=== PATIENT | male | born 1995 | race Caucasian/White ===

== ENCOUNTER 2025-08-29 09:34 | Outpatient (CLI) | payer OTHER, SELFPAY ==
--- OUTSIDE RECORDS SUMMARY | 2025-08-29 11:06 | XMS_ITS | Clinical Summary ---
Author Organization [facility] Address [address] [place] [address] Phone Care Team Providers Care [employer] Operator Name Role Phone Provider, Unknown Primary Care Provider Unavaila ble Allergies No known active allergies Medications No known medications Active Problems No known active problems Immunizations Immunization Administration Dates Next Due DTAP VACCINE 01/26/1995,01/28/1994 DTP-Hib 04/23/1995, 4,03/24/1994,02/03 Hepatitis A Vaccine, Pediatric/adolescent, 2 Dose Schedule 05/08/2009,05/15/2008 Hepatitis B Vaccine, Pediatric/adolescent 11/26/1996,08/12/1994,1993,09/16 Hib (PRP-OMP) Vaccine 04/23/1995,02/03/1994 MMR Vaccine 02/27/1998,01/26/1995 Meningococcal Vaccine 06/14/2012,05/15/2008 OPV 02/27/1998, 4,03/24/1994,02/03 TDAP Vaccine 01/25/2008 Social History Tobacco Use Types Packs/Day Years Used Date Smoking Tobacco: Never Assessed Sex and Gender Information Value Date Recorded Sex Assigned at Not on file 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 Gender Identity Not on file Sexual Orientation Not on file Last Filed Vital Signs Vital Sign Reading Time Taken Comments Blood Pressure 116/52 12/03/2024 11:56 AM STRETCH PRESS OPERATOR Pulse 96 12/03/2024 11:56 AM STRETCH PRESS OPERATOR Temperature 36.3 C (97.4 F) 12/03/2024 11:56 AM STRETCH PRESS OPERATOR Respiratory Rate 18 12/03/2024 11:56 AM STRETCH PRESS OPERATOR Oxygen Saturation 98% 12/03/2024 11:56 AM STRETCH PRESS OPERATOR Inhaled Oxygen Concentration - - Weight - - Height - - Body Mass Index - - Plan of Treatment Health Maintenance Due Date Last Done Comments Hepatitis C Virus (HCV) Screening 1993 DTaP/Tdap/Td Immunization (6 - Td or Tdap) 01/24/2018 01/25/2008, 04/23/1995, 01/26/1995, Additional history exists Human Papillomavirus (HPV) Immunization (1 - 3-dose SCDM series) 2020 Influenza Immunization (#1) 2025 SARS-COV-2 Immunization (2024- season) 2025 Respiratory Syncytial Virus (RSV) Immunization (Adult) (1 - 1-dose 75+ series) 2068 Hepatitis B Immunization Completed 997, 08/12/1994, 1993, Additional history exists Meningococcal Immunization (ACWY) Completed 06/14/2012, 05/15/2008 Pneumococcal Immunization Combined Aged Out No longer eligible based on patient's age to complete this topic Rotavirus Immunization Aged Out No lo nger eligible based on patient's age to complete this topic Insurance Care Teams [employer] Operator Relationship Specialty Start Date End Date Provider, Unknown UNKNOWN PCP - General 12/03/24
[2025-08-29 19:21] LABS: Hematocrit 46.1 % (42.0-52.0); Hemoglobin 15.3 g/dL (14.0-18.0); Mean Corpuscular HGB Conc 33.2 g/dl (32-36); Mean Corpuscular Hemoglobin 31.2 pg (26-34); Mean Corpuscular Volume 93.9 fl (80-100); Platelet Count Result 237 k/mm3 (150-375); Red Blood Count 4.91 M/mm3 (4.6-6.20); White Blood Count 7.1 K/mm3 (4.5-10.0)
[2025-08-29 19:31] LABS: Alanine Aminotransferase 22 U/L (6-50); Albumin Level 4.8 g/dL (3.5-5.1); Alkaline Phosphatase 57 U/L (38-126); Anion Gap 9 mmol/L (4-12); Aspartate Amino Transferase 58 U/L (17-59); Bilirubin,Total 0.9 mg/dL (0.2-1.3); Blood Urea Nitrogen 20 mg/dL (9-20); Calcium 9.5 mg/dL (8.4-10.2); Carbon Dioxide 23 mmol/L (22-30); Chloride 104 mmol/L (98-107); Cholesterol 181 mg/dL (0-200); Estimated Glomerular Filt Rate > 60; Glucose 94 mg/dL (65-110); HDL Direct 51 mg/dL; Magnesium 2.0 mg/dL (1.6-2.3); Potassium 4.1 mmol/L (3.4-5.0); Sodium 136 mmol/L (137-145); Total Protein 8.1 g/dL (6.3-8.2); Triglycerides 64 mg/dL (<150)
[2025-08-29 20:09] LABS: Thyroid Stimulating Hormone 1.510 uIU/mL (0.465-4.680)
[2025-08-29 20:28] LABS: Vitamin B12 493.0 pg/mL (239-931)
[2025-08-31 16:08] LABS: Deamidated Gliadin Abs, IgA <1 units (0-19); Deamidated Gliadin Abs, IgG 2 units (0-19); Immunoglobulin A, Qn <5 mg/dL (90-386)
== END 2025-08-29 09:35 | disposition home or self-care (01) ==
LOC: ANHBWCLAB 09:35
PROVIDERS: PCP Nurse Practitioner Adult Health; Visit Provider Nurse Practitioner Adult Health
DX: K90.0 Celiac disease (principal)
CPT/HCPCS: 36415; 80053; 80061; 82306; 82607; 82784; 83735; 84443; 85027; 85652; 86231; 86258